=== PATIENT | male | born 1975 | race Two or more races ===

== ENCOUNTER 2024-09-06 23:51 | Emergency (ER) | payer SELFPAY ==
[2024-09-07 00:30] VITALS: BP 174/149; BP 198/130; PULSE 117; RESP 24; TEMP 37.2; O2SAT 95
--- NOTE | 2024-09-07 00:49 | EKG_ITS ---
[facility] (Formerly [facility]) Test Date: 2024-09-07 Pat Name: EDSON WILSON Department: Room: - Gender: Male Loan Originator: : 1975 Requested By: Genaro Rojas Order Number: [id number] Reading MD: Genaro Rojas Measurements Intervals [place] Rate: 113 P: 44 IA: 154 QRS: 52 QRSD: 78 T: 53 QT: 319 QTc: 439 Interpretive Statements SINUS TACHYCARDIA ABNORMAL RHYTHM ECG No previous ECG available for comparison /[id number]/[email or web address]/[id number].pdf
--- NOTE | 2024-09-07 00:50 | PD.EDRME ---
Rapid Medical Screening Exam RME Arrival date/time: 09/06/24 23:51 48 year old male present to ED for c/o alcohol intoxication I have greeted and performed a focused initial assessment of this patient. A comprehensive ED assessment and evaluation of the patient, analysis of all test results, and completion of the medical decision making process will be conducted by additional ED providers. Chief Complaint: General Adult/Misc Complain Time Seen by Provider: 09/06/24 23:56 Vital signs: Vital Signs Temperature 99.0 F 09/07/24 00:30 Pulse Rate 117 H 09/07/24 00:30 Respiratory Rate 24 H 09/07/24 00:30 Blood Pressure 198/130 H 09/07/24 00:30 Pulse Oximetry (%) 95 09/07/24 00:30 Oxygen Delivery Method Room Air 09/07/24 00:30
[2024-09-07 01:36] LABS: Basophils % (Auto) 0 % (0-2.5); Eosinophils % (Auto) 0 % (0-10); Hematocrit 47.2 % (41.0-53.0); Hemoglobin 16.1 g/dL (13.5-16.0); Immature Granulocytes % (Auto) 0 % (0-0); Immature Granulocytes Auto 0.04 Thou/mm3 (0.00-0.00); Lymphocytes # (Auto) 1.8 Thou/mm3 (1.0-4.8); Lymphocytes % (Auto) 18 % (10-50); Mean Corpuscular HGB Conc 34.1 g/dl (31.0-37.0); Mean Corpuscular Hemoglobin 29.7 pg (25.0-35.0); Mean Corpuscular Volume 87 fL (80-100); Monocytes # (Auto) 0.8 Thou/mm3 (0.0-0.8); Monocytes % (Auto) 8 % (0-12); Neutrophils # (Auto) 7.5 Thou/mm3 (1.8-7.7); Neutrophils % (Auto) 74 % (37-80); Nucleated Red Blood Cell % 0 /100 WBC (0); Platelet Count 235 Thou/mm3 (140-440); RDW Standard Deviation 42.5 fL (35.1-43.9); Red Blood Count 5.42 Miln/mm3 (4.50-5.90); White Blood Count 10.1 Thou/mm3 (3.8-10.6)
[2024-09-07 01:56] LABS: Alanine Aminotransferase 43 U/L (10-49); Albumin, Serum 5.1 gm/dL (3.5-5.0); Albumin/Globulin Ratio 1.8 (1.2-2.2); Alcohol, Blood Medical < 3.0 mg/dL (0-10.0); Alkaline Phosphatase 72 U/L (46-116); Anion Gap 10 (7-16); Aspartate Amino Transferase 22 U/L (0-34); BUN/Creatinine Ratio 20 Ratio (12-20); Bilirubin,Total 1.7 mg/dL (0.3-1.2); Blood Urea Nitrogen 18 mg/dL (9-23); Calcium 7.5 mg/dL (8.3-10.6); Calcium (Corrected) 7.5 mg/dL (8.5-10.1); Carbon Dioxide 26.5 mMol/L (20.0-31.0); Chloride 103 mMol/L (98-107); Creatinine (Component) 0.9 mg/dL (0.6-1.3); Globulin 2.8 gm/dL (2.3-3.5); Glucose 129 mg/dL (74-106); Magnesium 2.3 mg/dL (1.6-2.6); Osmolality,Calculated 281 (275-295); Potassium 4.3 mMol/L (3.4-5.1); Sodium 139 mMol/L (136-145); Total Protein 7.9 gm/dL (5.7-8.2); Troponin I < 0.002 ng/mL (0.0-0.045); eGFR > 60 See Note
== END 2024-09-07 02:55 | disposition left against medical advice (07) ==
LOC: SERX 09-07 01:31
PROVIDERS: Physician Assistant; Emergency Provider Emergency Medicine
DX: F10.129 Alcohol abuse with intoxication, unspecified (principal); Z53.29 Procedure and treatment not carried out because of patient's decision for other reasons
CPT/HCPCS: 36415; 80053; 80307; 80320; 83735; 84484; 85025; 99281; G0480